=== PATIENT | female | born 1990 | race Caucasian/White ===

== ENCOUNTER 2020-01-10 13:19 | Outpatient (CLI) | payer OTHER, SELFPAY ==
--- NOTE | 2020-01-10 | XR_ITS ---
WS: [id number] ABDOMEN 2 VIEW(S) HISTORY: ABDOMINAL PAIN ACUTE COMPARISON: None available. Normal bowel gas pattern. No free air. No air-fluid levels. No suspicious calcifications or masses. No bone abnormality. XR/XR abdomen min 2V [id number] IMPRESSION: Normal abdomen.
== END 2020-01-10 13:20 | disposition home or self-care (01) ==
LOC: RADOUTREAD 01-11 08:29
PROVIDERS: Visit Provider Nurse Practitioner Family
DX: Z76.89 Persons encountering health services in other specified circumstances (principal)

== ENCOUNTER 2022-03-17 07:57 | Outpatient (CLI) | payer OTHER, SELFPAY ==
--- NOTE | 2022-03-17 08:02 | US_ITS ---
WS: [id number] ULTRASOUND LEFT BREAST HISTORY: LUMP IN ARMPIT COMPARISON: None available. TECHNIQUE: 2-D and Doppler. Ultrasound directed to the LEFT axilla as directed by the patient. Within the LEFT axilla is a benign lymph node measuring 7 x 5 x 6 mm. Normal fatty hilum. The cortex is symmetric. No increased vascula rity. US/US breast LT complete [id number] IMPRESSION: BI-RADS: 2-Benign FOLLOW-UP: See Report Benign lymph node LEFT axilla.
== END 2022-03-17 07:58 | disposition home or self-care (01) ==
LOC: RAD 07:58
PROVIDERS: Visit Provider Nurse Practitioner Family
DX: N63.32 Unspecified lump in axillary tail of the left breast (principal)
CPT/HCPCS: 76641

== ENCOUNTER → 2024-10-20 08:36 | Outpatient (BNVA) | payer OTHER, SELFPAY | PROVIDERS: Visit Provider Nurse Practitioner Women's Health | DX: N80.121 Deep endometriosis of right ovary (principal) | CPT/HCPCS: 76830 ==

== ENCOUNTER 2025-06-27 13:15 | Outpatient (CLI) | payer OTHER, SELFPAY ==
[2025-06-27 13:21] VITALS: BP 99/65; PULSE 96
[2025-06-27 13:28] VITALS: BMI 21.9
[2025-06-27 13:32] VITALS: RESP 15
[2025-06-27 13:36] VITALS: BP 94/61; PULSE 86
[2025-06-27 13:51] VITALS: BP 93/58; PULSE 92
[2025-06-27 14:06] VITALS: BP 94/61; PULSE 86
[2025-06-27 14:22] VITALS: BP 92/60; PULSE 83
== END 2025-06-27 14:30 | disposition home or self-care (01) ==
LOC: OPOB 13:16 → OBGYN 13:16
PROVIDERS: PCP Nurse Practitioner Family; Visit Provider Family Medicine
DX: O26.899 Other specified pregnancy related conditions, unspecified trimester (principal); Z3A.00 Weeks of gestation of pregnancy not specified; W19.XXXA Unspecified fall, initial encounter
CPT/HCPCS: 99211